=== PATIENT | male | born 1970 | race Hispanic/Latino ===

== ENCOUNTER 2019-09-16 17:09 | Emergency (ER) | payer BC, SELFPAY ==
[2019-09-16 17:17] VITALS: BP 125/82; PULSE 98; RESP 20; TEMP 36.8; O2SAT 98
--- NOTE | 2019-09-16 19:50 | ED.EYEPROB ---
HPI - Eye Problem General Chief complaint: Eye Problems <ROSEMARIE Keith Last Filed: 09/16/19 20:35> Stated complaint: L eye injury <ROSEMARIE Keith Last Filed: 09/16/19 20:35> Time Seen by Provider: 09/16/19 17:57 <ROSEMARIE Keith Last Filed: 09/16/19 20:35> Source: patient <ROSEMARIE Keith Last Filed: 09/16/19 20:35> Mode of arrival: ambulatory <ROSEMARIE Keith Last Filed: 09/16/19 20:35> Limitations: language barrier <ROSEMARIE Keith Last Filed: 09/16/19 20:35> History of Present Illness HPI Narrative: Patient presents to the emergency department for eye injury today. Reports he was doing yard work and a small branch hit his left eye. Reports pain and sensation of a foreign object. Denies vision changes or vomiting. <ROSEMARIE Keith Last Filed: 09/16/19 20:35> Related Data Allergies/adverse reactions: Allergies Allergy/AdvReac Type Severity Reaction Status Date / Time No Known Allergies Allergy Verified 09/16/19 17:16 <ROSEMARIE Keith Last Filed: 09/16/19 20:35> Review of Systems Review of Systems: Narrative: CONSTITUTIONAL: Denies fever EYES: Reports redness. Denies visual changes, or discharge. GASTROINTESTINAL: Denies vomiting <ROSEMARIE Keith Last Filed: 09/16/19 20:35> All systems reviewed & are unremarkable except as noted in HPI and below <ROSEMARIE Keith Last Filed: 09/16/19 20:35> [facility] Past Medical History Medical History: Medical History (Updated 09/17/19 @ 00:00 by Background Daemon) History of diabetes mellitus History of hyperlipidemia <ROSEMARIE Keith Last Filed: 09/16/19 20:35> Social History Social History: Social History Gender identity (if verbalized by the patient): Male <Maren Roldan PA-C - Last Filed: 09/16/19 20:35> Exam Narrative: Exam Narrative: GENERAL: Well-appearing, well-nourished, and in no acute distress. HEAD: Normocephalic, atraumatic. EYES: PERRLA and EOMI. Fluorescein stain exam shows a small corneal abrasion on the left. Eye pressures are normal, 13 bilaterally. Left upper eyelid with laceration in the middle that is through and through, about 1/2 cm long. No foreign bodies noted. 20/50 bilaterally. 20/50 in the right eye, and 20/200 in the left eye. EXTREMITIES: Normal range of motion. No edema. SKIN: Warm, dry, no rash. NEURO: No focal deficits. Alert and oriented x3. PSYCH: Normal mood and affect <Maren Roldan PA-C - Last Filed: 09/16/19 20:35> Course FINANCIAL WELLNESS COACH/PA Physician Supervision For this patient encounter, I reviewed the FINANCIAL WELLNESS COACH or PA documentation, treatment plan, and medical decision making; and I had [id number] time with this patient. Patient presented with left eyelid laceration and corneal abrasion. He will be transferred to higher level of care due to upper eyelid laceration requiring ophthalmology. <Zelda Escobar MD - Last Filed: 09/17/19 07:06> Consultations Consultation #1: Spoke with Dr. Anthony who agrees with transfer to the ED <Maren Roldan PA-C - Last Filed: 09/16/19 20:35> Date: 09/16/19 <Maren Roldan PA-C - Last Filed: 09/16/19 20:35> Time: 20:31 <ROSEMARIE Keith Last Filed: 09/16/19 20:35> Consultation #2: Spoke with ED physician Dr. Christie who accepts transfer <ROSEMARIE Keith Last Filed: 09/16/19 20:35> Date: 09/16/19 <ROSEMARIE Keith Last Filed: 09/16/19 20:35> Time: 20:31 <ROSEMARIE Keith Last Filed: 09/16/19 20:35> Vital Signs Vital signs: Vital Signs Temperature 98.2 F 09/16/19 17:17 Pulse Rate 98 09/16/19 17:17 Respiratory Rate 20 09/16/19 17:17 Blood Pressure 125/82 09/16/19 17:17 Pulse Oximetry 98 09/16/19 17:17 Temperature 98.2 F 09/16/19 17:17 Pulse Rate 89 09/16/19 20:39 Respiratory Rate 18 09/16/19 20:39 Blood Pressure 134/90 05/0
[2019-09-16 20:39] VITALS: BP 134/90; PULSE 89; RESP 18; O2SAT 99
== END 2019-09-16 21:00 | disposition short-term general hospital (02) ==
PROVIDERS: Emergency Provider General Practice; PCP Emergency Medicine
DX: S01.112A Laceration without foreign body of left eyelid and periocular area, initial encounter (principal); S05.02XA Injury of conjunctiva and corneal abrasion without foreign body, left eye, initial encounter; E11.9 Type 2 diabetes mellitus without complications; E78.5 Hyperlipidemia, unspecified; W22.8XXA Striking against or struck by other objects, initial encounter
CPT/HCPCS: 99283

== ENCOUNTER → 2020-04-16 14:46 | Outpatient (CLI) | payer BC, SELFPAY ==
--- NOTE | ~2020-04-16 | XR_ITS ---
EXAMINATION: XR chest 2V 04/16/2020 15:11 INDICATION: Cough. Positive Covid. PROCEDURE: 2 view chest COMPARISON: 05/14/2018 FINDINGS: The lungs are clear. The cardiomediastinal silhouette is within normal limits. There are no pleural effusions. There is no pneumothorax suspected. IMPRESSION: 1: NO ACUTE CARDIOPULMONARY DISEASE. Reviewed, dictated and finalized at location B. IOLOGY NURSE
== END ==
PROVIDERS: PCP Emergency Medicine; Visit Provider Emergency Medicine
DX: R05 Cough (principal)
CPT/HCPCS: 71046

== ENCOUNTER 2020-11-25 22:05 | Emergency (ER) | payer BC, SELFPAY ==
[2020-11-25 23:27] VITALS: BP 126/75; PULSE 73; RESP 14; TEMP 36.4; O2SAT 100
--- NOTE | 2020-11-26 00:07 | PC.NURSE ---
Pt. amb out of ed w/ steady gait. pt. called 2x no answer.
== END 2020-11-26 00:12 | disposition left against medical advice (07) ==
LOC: ANHED 11-26 00:11
PROVIDERS: PCP Emergency Medicine
DX: Z53.21 Procedure and treatment not carried out due to patient leaving prior to being seen by health care provider (principal); R21 Rash and other nonspecific skin eruption
CPT/HCPCS: 99199

== ENCOUNTER 2025-01-06 11:00 | Emergency (ER) | payer BC, SELFPAY ==
[2025-01-06 11:12] VITALS: BP 123/65; PULSE 91; RESP 20; TEMP 37; O2SAT 99
--- NOTE | 2025-01-06 11:56 | ED.SKABFB ---
HPI - Skin/Abscess/Foreign Bdy General Chief complaint: Skin/Abscess/Foreign Body Stated complaint: something growing on side of left leg Time Seen by Provider: 01/06/25 11:47 Source: patient and RN notes reviewed Mode of arrival: ambulatory Limitations: no limitations History of Present Illness HPI narrative: Patient presents today complaining of pain and tenderness to the left scrotum x1 week. He has taken tylenol without improvement and currently rates his pain 9/10. Denies urinary complaints or pain in the testicles. Patient states he does have history diabetes and was recently started on metformin. Related Data Home Medications ?Medication ?Instructions ?Recorded ?Confirmed ?Last Taken ?Type metformin 01/06/25 Unknown History Allergies Allergy/AdvReac Type Severity Reaction Status Date / Time No Known Allergies Allergy Verified 01/06/25 11:10 [facility] Past Medical History Medical History (Updated 01/06/25 @ 12:01 by Marilou Desai, HOSE INSPECTOR, ) History of hyperlipidemia History of diabetes mellitus Social History Social History Gender identity (if verbalized by the patient): Male Comments At time of signature, I have reviewed and agree with nursing past medical, surgical, social and family history unless otherwise noted. Please see nursing chart for further information. There is no relevant family history pertinent to the presenting complaint Exam Narrative: GENERAL: Well-appearing, well-nourished, in mild pain distress. HEAD: Normocephalic, atraumatic. EYES: EOMI. No redness or drainage. ENT: Mucous membranes pink and moist. NECK: Normal AROM. CHEST: No respiratory distress. :Left scrotum is indurated and mildly erythematous. Very tender to palpation. Testicles are not tender. Right scrotum normal. Patient has a few minor moist skin fissures in the left upper groin fold. EXTREMITIES: Normal range of motion. No edema. SKIN: Warm. Capillary refill normal. Normal skin turgor. NEURO: No focal deficits. Alert and oriented x3. Gait steady. PSYCH: Normal affect. No signs of depression or anxiety. Course Course Level of Care: Express Care Visit Vital Signs Vital signs: Vital Signs Temperature 98.6 F 01/06/25 11:12 Pulse Rate 91 01/06/25 11:12 Respiratory Rate 20 01/06/25 11:12 Blood Pressure 123/65 01/06/25 11:12 Pulse Oximetry 99 01/06/25 11:12 Oxygen Delivery Room Air 01/06/25 11:12 Temperature 98.6 F 01/06/25 11:12 Pulse Rate 91 01/06/25 11:12 Respiratory Rate 20 01/06/25 11:12 Blood Pressure 123/65 01/06/25 11:12 Pulse Oximetry 99 01/06/25 11:12 Oxygen Delivery Room Air 01/06/25 11:12 Reviewed Transfer Transfered to: [facility] Transportation: Other (Private vehicle) Transfer rationale: Scrotal pain and tenderness Accepting physician: Raphael MDM - Skin/Abscess/Foreign Bdy MDM Narrative Medical decision making narrative: 54-year-old male patient presents today complaining of pain and swelling to the left side of his scrotum x1 week. Denies testicular pain, urinary symptoms. He does report history of diabetes and recent prescription for metformin. Upon exam, patient has induration and mild erythema to the entire left side of the scrotum with tenderness as well as some a minor moist skin fissures to the upper left groin fold. Right-sided the scrotum is nontender. Recommend ER transfer for further evaluation and treatment. Patient agrees with plan. Vital signs stable. Differential Diagnosis Differential diagnosis: Likely abscess of skin or subcutaneous tissue, cellulitis and other (Scrotal abscess) Critical Care Time Critical Care Time Critical Care Time: No Discharge Plan Discharge Clinical Impression: Swelling of left half of scrotum Patient Disposition: Acute Care Hospital Condition: Stable Patient Language: Malagasy Prescriptions: No Action metformin Follow-up/Referrals: UNKNOWN,DOCTOR [Primary Care Provider] Time of Disposition: 12:00
== END 2025-01-06 12:00 | disposition short-term general hospital (02) ==
PROVIDERS: Emergency Provider Nurse Practitioner
DX: N50.89 Other specified disorders of the male genital organs (principal); E11.9 Type 2 diabetes mellitus without complications; Z79.84 Long term (current) use of oral hypoglycemic drugs; E78.5 Hyperlipidemia, unspecified
CPT/HCPCS: 99212; G0463

== ENCOUNTER 2025-01-06 12:18 | Emergency (ER) | payer BC, SELFPAY ==
--- NOTE | ~2025-01-06 | CT_ITS ---
EXAMINATION: CT pelvis w con DATE: 01/06/2025 15:34 INDICATION: Groin cellulitis TECHNIQUE: Computed tomography (CT) of the pelvis was performed with 100 cc Omnipaque 350 intravenous contrast. The dose-length product was 276.44 mGy-cm. Automated exposure control and iterative reconstruction technique were employed. COMPARISON: CT dated 05/14/2018 FINDINGS: There is diffuse scrotal wall thickening or so on the left with associated subcutaneous stranding and soft tissue edema, consistent with cellulitis. There is inflammatory stranding noted extending into the groin and perineal subcutaneous tissues. No focal rim-enhancing fluid collection is carlos ntified to suggest abscess. No soft tissue gas to suggest necrotizing infection. No enlarged necrotic lymph nodes are identified. Nonobstructive bowel pattern. No significant vascular abnormality. No lymphadenopathy. No acute osseous abnormality. IMPRESSION: 1. CT findings consistent with scrotal and groin cellulitis. No evidence of drainable abscess or evidence of Michael's gangrene. Reviewed, dictated and finalized at location O. IMPRESSION: 1. CT findings consistent with scrotal and groin cellulitis. No evidence of fam inable abscess or evidence of Michael's gangrene.
--- NOTE | ~2025-01-06 | US_ITS ---
US scrotum doppler INDICATION: Left groin/scrotal pain TECHNIQUE: Testicular sonogram utilizing grayscale and color Doppler FINDINGS: The testes are normal in size and appearance. No focal lesions are seen. The right testes measures 4.6 x 1.7 x 2.8 cm centimeters, and the left testis measures 0.3 x 3 x 2.9 cm cm. There is normal vascular flow to both testes. There is soft tissue edema in the left groin. No discrete fluid c ollection to suggest abscess. The right epididymal cysts. There is a small right hydrocele. No evidence for varicocele. IMPRESSION: 1. Small right hydrocele. 2: Right epididymal cysts, largest measuring 5 mm. 3: Mild nonspecific edema in the left groin. Consider infection. No abscess identified. Reviewed, dictated and finalized at location O. IMPRESSION: 1. Small right hydrocele. 2: Right epididymal cysts, largest measuring 5 mm. 3: Mild nonspecific edema in the left groin. Consider infection. No abscess carlos ntified.
[2025-01-06 12:20] VITALS: BP 140/73; PULSE 91; RESP 16; TEMP 36.9; O2SAT 99
--- OUTSIDE RECORDS SUMMARY | 2025-01-06 12:45 | XMS_ITS | Clinical Summary ---
Author Organization [facility] Address [address] [place] [address] Care Team Providers Care Boat Cleaner Name Role Phone Harinder Watson MD Unavailable Harinder Watson MD Primary Care Provider Allergies No known active allergies Medications metFORMIN (GLUCOPHAGE) 850 mg tablet 08/28/19 18 Active losartan (COZAAR) 25 mg tablet 09/11/19 18 Active pravastatin (PRAVACHOL) 40 mg tablet 09/11/19 18 Active glipiZIDE XL (GLUCOTROL XL) 5 mg 24 hr tabletIndications:ty pe 2 diabetes mellitus 09/11/19 18 Active HYDROcodone-acetamin ophen (NORCO) 5-325 mg per tabletIndications:Pa in 08/24/19 18 Active ergocalciferol (VITAMIN D) 50,000 unit capsule 08/19/19 18 Active fenofibrate nanocrystallized (TRICOR,TRIGLIDE) 145 mg tablet 08/28/19 18 Active folic acid (FOLVITE) 1 mg tablet 08/19/19 18 Active baclofen (LIORESAL) 20 mg tablet 08/24/19 18 Active aspirin 81 mg tablet TK 1 T PO QD 0 0 18 Active NARCAN 4 mg/actuation spray,non-aerosol 08/19/19 18 Active metFORMIN (GLUCOPHAGE) 1,000 mg tablet Take 1,000 mg by mouth 2 (two) times a day with meals Active moxifloxacin (VIGAMOX) 0.5 % ophthalmic solution Administer 1 drop into the left eye 3 (three) times a day 3 mL 09/17/19 20 Active erythromycin (ILOTYCIN) ophthalmic ointment Place 1/2 inch ribbon in left eye three times a day. 3.5 g 09/17/19 20 Active Active Problems Problem Noted Date Diagnosed Date Full-thickness laceration of left eyelid, not involving lacrimal drainage structures 09/29/2019 Assessment & Plan (09/29/2019 3:42 PM CDT): POW#2 from [facility] lac repair in ED (Raj). Doing well. Mild notch, patient pleased with appearance. Two absorbable sutures removed atraumatically at today. Type 2 diabetes mellitus without complication Assessment & Plan (09/29/2019 3:44 PM CDT): No diabetic retinopathy. Recommend annual dilated exams for surveillance. Patient wishes to continue care at outside established eye care provider. Surgical History Surgery Date Site/Laterality Comments APPENDECTOMY Medical History Medical History Date Comments Hypertension Diabetes mellitus (HCC) DM (diabetes mellitus) Hyperlipemia Family History Medical History Relation Name Comments Diabetes Mother Diabetes Sister Relation Name Status Comments Mother Sister Social History Tobacco Use Types Packs/Day Years Used Date Smoking Tobacco: Light Smoker Cigarettes Smokeless Tobacco: Never Alcohol Use Standard Drinks/Week Comments Not Currently 0 (1 standard drink = 0.6 oz pur e alcohol) Personal Safety Answer Date Recorded Getting School Help Needed Not on file 07/30 Sex and Gender Information Value Date Recorded Sex Assigned at Not on file Legal Sex Male 12:14 PM AGRICULTURAL TECHNICIAN Gender Identity Not on file Sexual Orientation Not on file Obstetrics History Last Filed Vital Signs Vital Sign Reading Time Taken Comments Blood Pressure 136/86 09/16/2019 9:48 PM CDT Pulse 91 09/16/2019 9:48 PM CDT Temperature 37 C (98.6 F) 09/16/2019 9:48 PM CDT Respiratory Rate 20 09/16/2019 9:48 PM CDT Oxygen Saturation 96% 09/16/2019 9:48 PM CDT Inhaled Oxygen Concentration - - Weight 94.8 kg (209 lb) 09/16/2019 9:48 PM CDT Height 170.2 cm (5' 7) 09/16/2019 9:48 PM CDT Body Mass Index 32.73 09/16/2019 9:48 PM CDT Plan of Treatment Not on file [place] Care Teams Boat Cleaner Relationship Specialty Start Date End Date Harinder Watson MD PCP - General Emergency Medicine 11/18/21 Harinder Watson MD Emergency Medicine 09/17/19
--- OUTSIDE RECORDS SUMMARY | 2025-01-06 12:45 | XMS_ITS | Clinical Summary ---
Author Organization [facility] Address [facility]ly [facility] [place] [address] Care Team Providers Care City Solicitor Name Role Phone Juan Antonio Chinchilla MD Unavailable [phone] Harinder Watson MD Primary Care Provider [phone] Allergies No known active allergies Medications aspirin 81 MG chewable tablet Chew 1 tablet (81 mg total) by mouth daily. 08/06/2016 Active omega-3 fatty acid 1000 MG capsule Take 2 capsules (2,000 mg total) by mouth 2 (two) times daily. 08/06/2016 Active fenofibrate 145 MG tablet Take 1 tablet (145 mg total) by mouth nightly at bedtime. 11/11/2016 Active metFORMIN 500 MG tablet Take 1 tablet (500 mg total) by mouth 2 (two) times daily with meals. 11/11/2016 Active Active Problems Problem Noted Date Diagnosed Date Hyperlipidemia 08/06/2016 Diabetes mellitus ([facility]) 08/06/2016 Chest pain in adult 08/06/2016 Dyslipidemia Chest pain Family History Relation Status Comments Father Alive Mother Alive Social History Tobacco Use Types Packs/Day Years Used Date Smoking Tobacco: Former Cigarettes Q uit: 2010 Smokeless Tobacco: Never Alcohol Use Standard Drinks/Week Comments Yes 0 (1 standard drink = 0.6 oz pur e alcohol) Sex and Gender Information Value Date Recorded Sex Assigned at Not on file Legal Sex Male 1:54 PM SUBSTANCE ABUSE COUNSELOR Gender Identity Not on file Sexual Orientation Not on file Occupation Industry Job Start Date Job End Date [employer] Not on file Not on file Not on file Last Filed Vital Signs Vital Sign Reading Time Taken Comments Blood Pressure 138/80 04/25/2023 2:37 PM SUBSTANCE ABUSE COUNSELOR Pulse 68 04/25/2023 2:37 PM SUBSTANCE ABUSE COUNSELOR Temperature 36.2 C (97.1 F) 04/25/2023 1:09 PM SUBSTANCE ABUSE COUNSELOR Respiratory Rate 18 04/25/2023 2:37 PM SUBSTANCE ABUSE COUNSELOR Oxygen Saturation 99% 04/25/2023 2:37 PM SUBSTANCE ABUSE COUNSELOR Inhaled Oxygen Concentration - - Weight 86.3 kg (190 lb 4.1 oz) 04/25/2023 1:09 P M SUBSTANCE ABUSE COUNSELOR Height 172.7 cm (5' 8) 04/25/2023 1:09 PM SUBSTANCE ABUSE COUNSELOR Body Mass Index 28.93 04/25/2023 1:09 PM SUBSTANCE ABUSE COUNSELOR Plan of Treatment Health Maintenance Due Date Last Done Comments Colorectal Cancer Screening Colonoscopy (10 Years) 1972 Kidney Health Evaluation 1972 Annual Physical 1975 Diabetes: Retinopathy Eye Exam 1990 Hepatitis C 1990 Hepatitis B Vaccines (1 of 3 - 19+ 3-dose series) 1991 Pneumococcal Vaccine: 50+ Ye ars (1 of 2 - PCV) 1991 Hemoglobin A1C 01/15/2017 07/15/2016 Lipid Panel 07/15/2017 07/15/2016 Zoster Vaccines (1 of 2) 2022 COVID-19 Vaccine (2 - 2023-2 5 season) 2024 02/21/2021 DTaP, Tdap and Td Vaccines ( 2 - Td or Tdap) 03/13/2025 03/13/2015 Meningococcal B Vaccine Aged Out No l onger eligible based on patient's age to complete this topic Meningococcal Vaccine Aged Out No pearl stephanie eligible based on patient's age to complete this topic RSV Immunizations Under 20 Months Aged Out No longer eligible based on patient's age to complete this topic Procedures Procedure Name Priority Date/Time Associated Diagnosis Comments LIPID PANEL Routine 07/15/2016 HEMOGLOBIN, GLYCOSYLATED Routine 07/15/2016 from Last 3 Months or Most Recently Relevant to Health Maintenance Results * LIPID PANEL (07/15/2016) CHOLESTEROL 174 HDL 27 TRIGLYCERIDES 727 07/15/2016 [facility] Final Result * HEMOGLOBIN, GLYCOSYLATED (07/15/2016) HGB A1C 9.6 07/15/2016 us Doc [facility] Final Result from Last 3 Months or Most Recently Relevant to Health Maintenance Insurance [facility] [employer] [facility] Care Teams City Solicitor Relationship Specialty Start Date End Date Harinder Watson MD [address] [address] PCP - General 12/29/16 Juan Antonio Chinchilla MD [facility]. [address] Confectionery Cooker CARDIOVASCULAR DISEASE 07/30/16
--- OUTSIDE RECORDS SUMMARY | 2025-01-06 12:45 | XMS_ITS | Encounter Summary ---
Author Organization [facility] Address [facility] [place] [address] Care Team Providers Care Manager Enterprise Name Role Phone Harinder Watson MD Primary Care Provider [phone] Juan Antonio Chinchilla MD Unavailable [phone] Bryce Mustafa MD Primary Care Provider Unavailable Harinder Watson MD Primary Care Provider [phone] Encounter Details Date Type Department Care Team (Late st Contact Info) Description 08/10/2016 Abstract [facility] [address] [place], [place] [address] Karolyn Loera MA Social History Tobacco Use Types Packs/Day Years Used Date Smoking Tobacco: Former Cigarettes Q uit: 2010 Smokeless Tobacco: Never Alcohol Use Standard Drinks/Week Comments Yes 0 (1 standard drink = 0.6 oz pur e alcohol) Sex and Gender Information Value Date Recorded Sex Assigned at Not on file Legal Sex Male 1:54 PM HEALTH/SAFETY JOB TITLES Gender Identity Not on file Sexual Orientation Not on file Occupation Industry Job Start Date Job End Date [employer] Not on file Not on file Not on file documented as of this encounter Plan of Treatment Not on file documented as of this encounter Procedures Procedure Name Priority Date/Time Associated Diagnosis Comments CBC (OUTSIDE LAB) Routine 07/15/2016 COMPREHENSIVE METABOLIC PANEL Routine 07/15/2016 LIPID PANEL Routine 07/15/2016 HEMOGLOBIN, GLYCOSYLATED Routine 07/15/2016 THYROXINE, FREE (FT4) Routine 07/15/2016 THYROID STIM HORMONE TSH Routine 07/15/2016 documented in this encounter Results * HEMOGLOBIN, GLYCOSYLATED (07/15/2016) HGB A1C 9.6 07/15/2016 us Doc [facility] Final Result * THYROID STIM HORMONE, TSH (07/15/2016) TSH 2.470 07/15/2016 us Doc [facility] Final Result * THYROXINE, FREE (FT4) (07/15/2016) FREE T4 1.16 07/15/2016 us Doc [facility] Final Result * CBC (OUTSIDE LAB) (07/15/2016) WBC 6.12 HGB 15.5 HCT 46.5 PLT 229 07/15/2016 us Doc [facility]-OUTSIDE/ABSTRACTED Final Result * LIPID PANEL (07/15/2016) CHOLESTEROL 174 HDL 27 TRIGLYCERIDES 727 07/15/2016 us Doc [facility] Final Result * COMPREHENSIVE METABOLIC PANEL (07/15/2016) SODIUM S/P/B 138 POTASSIUM S/P/B 4.8 CO2 24 CHLORIDE S/P/B 101 GLUCOSE 140 CALCIUM S/P/B 9.6 BUN 13 CREATININE S/P/B 0.83 0.7 - 1.3 EGFR NON-AFR. AMER. 130 ALKALINE PHOSPHATASE S/P/B 82 ALT 31 AST 24 BILIRUBIN TOTAL S/P/B 0.3 ALBUMIN S/P/B 4.8 3.5 - 5.0 TOTAL PROTEIN S/P/B 7.7 07/15/2016 us Doc [facility] Final Result documented in this encounter Visit Diagnoses Not on filedocumented in this encounter Additional Health Concerns Infection Onset Date Last Indicated Resolved Time COVID-19 Rule Out 04/25/2023 04/25/2023 04/25/2023 1:42 PM HEALTH/SAFETY JOB TITLES documented as of this encounter Care Teams Manager Enterprise Relationship Specialty Start Date End Date Harinder Watson MD [address] [address] PCP - General FAMILY PRACTICE 07/15/16 08/19/16 Bryce Mustafa MD PCP - General 08/20/16 12/28/16 Harinder Watson MD [address] [address] PCP - General 12/29/16 Juan Antonio Chinchilla MD [facility]. [facility] [address] [place] [address] [employer] Powerplant Mechanic CARDIOVASCULAR DISEASE 07/30/16 documented as of this encounter
--- OUTSIDE RECORDS SUMMARY | 2025-01-06 12:45 | XMS_ITS | Patient Health Record ---
Author Organization Owen Hayes MD [facility] Address [address] [place], [place] [id number] Care Team Providers Care Assembler Fitter Name Role Phone Owen Hayes Primary Care Provider Allergies No Known Allergies Reason For Referral No Information Medications Medication SIG (Take, Route, Frequency, Duration) Notes Start Date End Date Status Cetirizine HCl 10 MG 1 tablet Orally Onc e a day for 90 days Not-Taking 1st Choice Lancets Super Thin 1 as directed topically TID glucometer testing (Dx: E11.65, PROG: GOOD, DUR: 30D) for 90 days 01/31/2021 Active Triamcinolone Acetonide 0.1 % 1 application Externally Twice a day for 30 days 11/28/2020 Not-Taking Alcohol Pads 70 % as directed topicall y TID glucometer testing (Dx: E11.65, PROG: GOOD, DUR: 30D) for 90 days 01/31/2021 Active metFORMIN HCl 1000 MG 1 tablet with a me al Orally Twice a day for 90 days Active Blood Glucose Test 1 glucometer testing strips In Vitro TID, glucometer testing (Dx: E11.65, PROG: GOOD, DUR: 30D) for 90 days 01/31/2021 Active glucometer testing machine 1 glucometer testing (Dx: E11.65, PROG: GOOD, DUR: 30D) in vitro Once a day, for 999 days 01/31/2021 Active Januvia 25 MG 1 Tablet Orally Once a day for 90 days 01/31/2021 Active Social History Tobacco Use/Smoking Question Answer Notes Are you a nonsmoker Alcohol Screen (Audit-C) Question Answer Notes Did you have a drink containing alcohol in the p ast year? 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 Problem [id number] Type 2 diabetes mellitus with hyperglycemia (E11.65) Active confirmed FU 3 months patient will continue current medications and contact care team if any new symptoms arise. 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
[2025-01-06 13:19] LABS: Hematocrit 41.9 % (42.0-52.0); Hemoglobin 14.4 g/dL (14.0-18.0); Immature Granulocyte Percent A 0.7 % (0-0.5); Lymphocytes Absolute Auto 1.32 K/mm3 (0.9-3.2); Mean Corpuscular HGB Conc 34.4 g/dl (32-36); Mean Corpuscular Hemoglobin 29.7 pg (26-34); Mean Corpuscular Volume 86.4 fl (80-100); Nucleated Red Blood Cells Absolute Auto 0.000 K/mm3 (0.0-0.012); Nucleated Red Blood Cells Perc 0.0 % (0.0-0.2); Platelet Count Result 212 k/mm3 (150-375); Red Blood Count 4.85 M/mm3 (4.6-6.20); White Blood Count 13.4 K/mm3 (4.5-10.0)
[2025-01-06 13:30] LABS: Alanine Aminotransferase 17 U/L (6-50); Albumin Level 4.1 g/dL (3.5-5.1); Alkaline Phosphatase 99 U/L (38-126); Anion Gap 10 mmol/L (4-12); Aspartate Amino Transferase 20 U/L (17-59); Bilirubin,Total 0.7 mg/dL (0.2-1.3); Blood Urea Nitrogen 15 mg/dL (9-20); Calcium 9.3 mg/dL (8.4-10.2); Carbon Dioxide 23 mmol/L (22-30); Chloride 100 mmol/L (98-107); Estimated Glomerular Filt Rate > 60; Glucose 314 mg/dL (65-110); Potassium 4.4 mmol/L (3.4-5.0); Sodium 133 mmol/L (137-145); Total Protein 7.5 g/dL (6.3-8.2)
--- NOTE | 2025-01-06 13:32 | PC.NURSE ---
Pt reports pain is 9/10. Declines need for pain medicine.
--- NOTE | 2025-01-06 13:39 | PC.NURSE ---
US at bedside.
[2025-01-06 15:44] VITALS: BP 121/74; PULSE 88; RESP 17; O2SAT 95
--- NOTE | 2025-01-06 15:58 | ED.MALEGU ---
HPI - Male Genitourinary General Chief complaint: Urogenital-Male Stated complaint: scrotal pain Time Seen by Provider: 01/06/25 12:30 History of Present Illness HPI Narrative: Patient is a 54-year-old male who presents ER with concerns for infection of the groin. He thought he had a pimple along the left side of his scrotum and inguinal crease. There has been no drainage. He has had progressive thickening of his skin and discomfort. Mild edema of the scrotum. No fevers or chills or sweats. Seen at urgent care and referred here for further evaluation. Patient is diabetic. He does not check his blood sugars. Related Data Home Medications ?Medication ?Instructions ?Recorded ?Confirmed ?Last Taken ?Type metformin 01/06/25 Unknown History Allergies Allergy/AdvReac Type Severity Reaction Status Date / Time No Known Allergies Allergy Verified 01/06/25 13:16 Review of Systems Review of Systems: All systems reviewed & are unremarkable except as noted in HPI and below Constitutional: Constitutional: Reports no additional constitutional complaints Cardiovascular: Cardiovascular: Reports no additional cardiovascular complaints Respiratory: Respiratory: Reports no additional respiratory complaints Gastrointestinal: Gastrointestinal: Reports no additional gastrointestinal complaints Integumentary/Breasts: Skin/Breast: Reports system reviewed and no additional complaints, except as docu [facility] Past Medical History Medical History (Updated 01/06/25 @ 16:09 by Edson Steinberg MD) History of hyperlipidemia History of diabetes mellitus Social History Social History Gender identity (if verbalized by the patient): Male Exam Narrative: GENERAL: Well-appearing, well-nourished, and in no acute distress. HEAD: Normocephalic, atraumatic. ENT: Mucous membranes moist. CHEST: Clear to auscultation. No respiratory distress. HEART: Regular rate and rhythm. Normal peripheral pulses. ABDOMEN: Soft, nontender, nondistended. : Mild edema left scrotum with thickening of the skin moving into the inguinal crease and the thigh. There is slight break in the skin in this area as well. No fluctuance or pustules. EXTREMITIES: Normal range of motion. No edema. SKIN: Warm, dry, no rash. NEURO: Alert and oriented x3. PSYCH: Normal mood and affect. Course Course Emergency Course: Exam and imaging consistent with cellulitis. Patient be started on oral antibiotics. Discussed return precautions. He has been compliant with metformin for diabetes management. Vital Signs Vital signs: Vital Signs Temperature 98.4 F 01/06/25 12:20 Pulse Rate 91 01/06/25 12:20 Respiratory Rate 16 01/06/25 12:20 Blood Pressure 140/73 01/06/25 12:20 Pulse Oximetry 99 01/06/25 12:20 Oxygen Delivery Room Air 01/06/25 12:20 Temperature 98.4 F 01/06/25 12:20 Pulse Rate 88 01/06/25 15:44 Respiratory Rate 17 01/06/25 15:44 Blood Pressure 121/74 01/06/25 15:44 Pulse Oximetry 95 01/06/25 15:44 Oxygen Delivery Room Air 01/06/25 12:20 MDM - Male Genitourinary Lab Data 01/06/25 13:11 01/06/25 13:11 Labs: Lab Results 01/06/25 Range/Units 13:11 WBC 13.4 H (4.5-10.0) K/mm3 RBC 4.85 (4.6-6.20) M/mm3 Hgb 14.4 (14.0-18.0) g/dL Hct 41.9 L (42.0-52.0) % MCV 86.4 (80-100) fl MCH 29.7 (26-34) pg MCHC 34.4 (32-36) g/dl RDW 12.0 (11.5-14.5) % Plt Count 212 (150-375) k/mm3 MPV 10.2 (7.4-10.4) fl Immature Gran % (Auto) 0.7 H (0-0.5) % Neut % (Auto) 84.1 H (45.5-73.1) % Lymph % (Auto) 9.9 L (18.3-44.2) % [place] % (Auto) 4.8 (2.6-8.5) % Eos % (Auto) 0.3 (0-4.4) % Baso % (Auto) 0.2 (0.2-1.2) % Lymph # (Auto) 1.32 (0.9-3.2) K/mm3 [place] # (Auto) 0.6 (0.1-0.6) K/mm3 Eos # (Auto) 0.0 (0-0.3) K/mm3 Baso # (Auto) 0.0 (0.0-0.1) K/mm3 Abs Immat Gran (auto) 0.09 H (0.00-0.031) K/mm3 Absolute Neuts (auto) 11.2 H (1.3-6.7) K/mm3 Absolute Nucleated RBC 0.000 (0.0-0.012) K/mm3 Nucleated RBC % 0.0 (0.0-0.2) % Sodium 133 L (137-145) mmol/L Potassium 4.4 (3.4-5.0) mmol/L Chloride 100 (98-107) mmol/L Carbon Dioxide 23 (22-30) mmol/L Anion Gap 10 (4-12) mmol/L BUN 15 (9-20) mg/dL Creatinine 0.74 (0.7-1.3) mg/dL Estim Creat Clear Calc Not Reportable Estimated GFR > 60 (59 - ) Glucose 314 H (65-110) mg/dL Lactic Acid 1.3 (0.7-2.0) mmol/L Calcium 9.3 (8.4-10.2) mg/dL Total Bilirubin 0.7 (0.2-1.3) mg/dL AST 20 (17-59) U/L ALT 17 (6-50) U/L Alkaline Phosphatase 99 (38-126) U/L Total Protein 7.5 (6.3-8.2) g/dL Albumin 4.1 (3.5-5.1) g/dL Discharge Plan Discharge Clinical Impression: Cellulitis of scrotum Patient Disposition: Home Condition: Stable Instructions: Antibiotic Form, Cellulitis (ED) Additional Instructions: Return ER if you have worsening infection, you have fever over 100.4? F, you cannot keep down food/water/medication, or you have additional concerns. Patient Language: Bahamian Prescriptions: New doxycycline hyclate 100 mg capsule 100 mg PO BID Qty: 20 0RF No Action metformin Follow-up/Referrals: UNKNOWN,DOCTOR [Primary Care Provider] - 1 Week
== END 2025-01-06 16:25 | disposition home or self-care (01) ==
PROVIDERS: Emergency Provider Emergency Medicine
DX: E78.5 Hyperlipidemia, unspecified (principal); E11.9 Type 2 diabetes mellitus without complications; N49.2 Inflammatory disorders of scrotum; Z79.84 Long term (current) use of oral hypoglycemic drugs; Z79.899 Other long term (current) drug therapy
CPT/HCPCS: 36415; 72193; 76870; 80053; 83605; 85025; 93976; 99284; Q9967